=== PATIENT | male | born 1965 | race Caucasian/White ===

== ENCOUNTER 2023-03-09 09:09 | Day surgery (SDC) | payer BC ==
[2023-03-09] MEDS ORDERED: LIDOCAINE 1% (10MG/ML) FOR IV START INTRADERMA PRN (09:43)
[2023-03-09] MEDS ORDERED: LACTATED RINGERS 1,000 ML IV SCH (09:43)
[2023-03-09] MEDS ORDERED: LACTATED RINGERS 1,000 ML IV ONE (10:03)
[2023-03-09 10:05] VITALS: TEMP 97.3
[2023-03-09] MEDS ORDERED: LIDOCAINE 2% INJ 20 MG/ML (2 ML VIAL) ONE (10:26)
[2023-03-09] MEDS ORDERED: PROPOFOL 10 MG/ML 20 ML VIAL IV ONE (10:26)
--- NOTE | 2023-03-09 10:30 | P.GSHP ---
History of Present Illness H&P Date: 03/09/23 Chief Complaint: Colon cancer screening 57-year-old male here for colonoscopy. Last colonoscopy years ago or so. That was normal. Family history of colon cancer in a grandmother and an aunt. 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 Past Anesthesia/Blood Transfusion Reactions: Postoperative Nausea & Vomiting (PONV) Smoking Status: Former smoker - Past Family History Father Family Medical History: Cancer Additional Family Medical History / Comment(s): Stage IV bladder cancer. Mother Family Medical History: No Reported History Medications and Allergies Home Medications Medication Instructions Recorded Confirmed Type Calcium Carbonate [Calcium] 600 mg PO Q48H 03/03/23 03/03/23 History amLODIPine 10 mg PO QAM 03/03/23 03/03/23 History hydroCHLOROthiazide 25 mg PO QAM 03/03/23 03/03/23 History Allergies Allergy/AdvReac Type Severity Reaction Status Date / Time meperidine [From Demerol] Allergy Anaphylaxis Verified 03/09/23 09:52 Surgical - Exam Vital Signs Temp Pulse Resp BP Pulse Ox 97.3 F L 79 20 133/67 99 03/09/23 10:04 03/09/23 10:04 03/09/23 10:04 03/09/23 10:04 03/09/23 10:04 Physical exam: General: Well-developed, well-nourished HEENT: Normocephalic, sclerae nonicteric Abdomen: Nontender, nondistended Extremities: No edema Neuro: Alert and oriented Assessment and Plan (1) Colon cancer screening Narrative/Plan: Will proceed with colonoscopy at this time. Current Visit: Yes Status: Acute Code(s): Z12.11 - ENCOUNTER FOR SCREENING FOR MALIGNANT NEOPLASM OF COLON SNOMED Code(s): 725161761
--- NOTE | 2023-03-09 10:48 | P.PCN ---
Date of Procedure: 03/09/23 Procedure(s) Performed: PREOPERATIVE DIAGNOSIS: Screening POSTOPERATIVE DIAGNOSIS: Diverticulosis PROCEDURE: Colonoscopy ANESTHESIA: MAC SURGEON: Edwin Camarillo M.D. SPECIMENS: None ENDOSCOPIC PROCEDURE: The patient was placed on the endoscopy table in the left decubitus position. The Olympus colonoscope was inserted into the anus and passed under direct visualization to the base of the cecum. The appendiceal orifice was visualized. From that point the scope was slowly withdrawn inspecting all surfaces carefully. There were no neoplastic inflammatory or polypoid lesions throughout the cecum, ascending, transverse, descending, sigmoid and rectum. There was mild left-sided diverticulosis noted. Digital rectal examination was normal. The patient was taken to the recovery room in stable condition per anesthesia guidelines. RECOMMENDATIONS: Resume diet. Repeat colonoscopy 7 years
[2023-03-09 11:15] VITALS: BP 126/80; PULSE 70; RESP 18
== END 2023-03-09 11:30 | disposition home or self-care (01) ==
LOC: ORWHC2ENDO 09:09
PROVIDERS: ATTEND Surgery
DX: Z12.11 Encounter for screening for malignant neoplasm of colon (principal); K57.30 Diverticulosis of large intestine without perforation or abscess without bleeding; I10 Essential (primary) hypertension; Z98.890 Other specified postprocedural states; Z87.891 Personal history of nicotine dependence; Z88.5 Allergy status to narcotic agent; Z79.899 Other long term (current) drug therapy; Z80.0 Family history of malignant neoplasm of digestive organs
CPT/HCPCS: 45380; J2704; J2001